=== PATIENT | female | born 1965 | race African-American/Black ===

== ENCOUNTER 2023-04-17 00:48 | Inpatient (IN) | payer OTHER ==
[~2023-04-17] VITALS: Ht 167.6 cm; Wt 70.5 kg
[2023-04-17] MEDS ORDERED: InsuLIN REG 1unit/0.01ml Soln (100units/ml) IV ONE (01:15)
[2023-04-17] MEDS ORDERED: LACTATED RINGER'S 1,000 ML IV ONE (01:15)
[2023-04-17 01:30] VITALS: PULSE 112; RESP 20; O2SAT 96
[2023-04-17 01:33] LABS: Basophils # (auto) 0 10 ^3/uL (0-0.2); Basophils % (auto) 0.3 % (0.0-2.0); Eosinophils # (auto) 0 10 ^3/uL (0-0.8); Hemoglobin 12.8 g/dL (12.2-16.2); Lymphocytes # (auto) 0.8 10 ^3/uL (0.4-5.4); Mean Corpuscular Hemoglobin 30.2 pg (28.0-32.0); Red Blood Cells 4.24 10^6/uL (4.0-5.20)
[2023-04-17 01:34] LABS: Hematocrit 42.2 % (36.0-46.0); Lymphocytes % (auto) 4.8 % (10.0-50.0); Mean Corpuscular Hgb Conc. 30.3 g/dL (32.0-36.0); Mean Corpuscular Volume 99.6 fL (80.0-100.0); Monocytes # (auto) 1.4 10 ^3/uL (0-1.3); Monocytes % (auto) 8.6 % (0.0-12.0); Neutrophils # (auto) 14.2 10 ^3/uL (1.6-8.6); Neutrophils % (auto) 86.3 % (37.0-80.0); Nucleated Red Blood Cells % 0.1 %; Red Cell Distribution Width 15.6 % (11.8-14.3); White Blood Cell 16.5 10^3/uL (4.4-10.8)
[2023-04-17 01:54] LABS: Alanine Aminotransferase 108 U/L (7-40); Albumin 4.9 g/dL (3.2-4.8); Alkaline Phosphatase 200 U/L (46-116); Anion Gap 28.00001 (5-15); Aspartate Aminotransferase 97 U/L (13-40); BUN/Creatinine Ratio 14.6 (10.0-20.0); Blood Urea Nitrogen 20 mg/dL (9-23); Calcium 9.6 mg/dL (8.7-10.4); Chloride 101 mmol/L (98-107); Magnesium 2.2 mg/dL (1.6-2.6); Potassium 5.4 mmol/L (3.5-5.1); Sodium 139 mmol/L (136-145)
[2023-04-17 01:55] LABS: Bilirubin, Total 0.4 mg/dL (0.2-1.0); Total Protein 8.1 g/dL (5.7-8.2)
[2023-04-17 02:08] LABS: Carbon Dioxide < 10.0 mmol/L (20-30)
[2023-04-17 02:09] LABS: Glucose 555 mg/dL (74-106)
[2023-04-17] MEDS ORDERED: LACTATED RINGER'S 2,100 ML IV ONE (02:15)
[2023-04-17] MEDS ORDERED: InsuLIN R (HUMAN) 100 UNITS in SODIUM CHL 0.9% 99 ML IV SCH ×2 (02:15→08:00)
[2023-04-17] MEDS ORDERED: DEXTROSE (50%) 50ML SYRG IV PRN ×3 (02:15→16:15)
[2023-04-17] MEDS ORDERED: MORPHINE SULFATE 4 MG/ML SYR/VIAL IV ONE (03:15)
[2023-04-17] MEDS ORDERED: ACETAMINOPHEN 325 MG TAB PO ONE ×2 (03:15→07:15)
[2023-04-17] MEDS ORDERED: ONDANSETRON HCL 4 MG/2 ML VIAL IV ONE (03:15)
[2023-04-17 03:26] LABS: Urine Bacteria FEW /hpf (None Seen); Urine Blood Negative /uL (Negative); Urine Clarity Clear (Clear); Urine Color Colorless (Yellow); Urine Hyaline Cast FEW /lpf (0 - 2); Urine Protein, UAD 1+ (Negative); Urine Specific Gravity 1.017 (1.001-1.035); Urine Urobilinogen Normal (Negative); Urine WBC 2 /hpf (0 - 5)
[2023-04-17] MEDS ORDERED: ACETAMINOPHEN 325 MG TAB PO PRN ×3 (07:15→09:45)
[2023-04-17 07:40] LABS: Alanine Aminotransferase 89 U/L (7-40); Albumin 4.3 g/dL (3.2-4.8); Alkaline Phosphatase 150 U/L (46-116); Anion Gap 23.00001 (5-15); Aspartate Aminotransferase 73 U/L (13-40); BUN/Creatinine Ratio 11.7 (10.0-20.0); Bilirubin, Total 0.2 mg/dL (0.2-1.0); Blood Urea Nitrogen 14 mg/dL (9-23); Calcium 8.7 mg/dL (8.5-10.1); Chloride 106 mmol/L (98-107); Glucose 254 mg/dL (74-106); Potassium 4.6 mmol/L (3.5-5.1); Sodium 139 mmol/L (136-145); Total Protein 7.4 g/dL (5.7-8.2)
[2023-04-17 08:00] VITALS: PULSE 104; RESP 14; O2SAT 95
[2023-04-17] MEDS ORDERED: SODIUM CHLORIDE 0.9% 1,000 ML IV SCH (08:00)
[2023-04-17] MEDS ORDERED: INSULIN LANTUS (GLARGINE) 1 /0.01ml (100units/ml) SC ONE (08:00)
[2023-04-17 08:07] LABS: Carbon Dioxide < 10.0 mmol/L (20-30)
[2023-04-17] MEDS ORDERED: D5W/SOD CHL 0.45% 1,000 ML IV SCH (08:15)
[2023-04-17] MEDS ORDERED: SODIUM BICARBONATE 8.4 % INJ 50ML VIAL IV ONE (08:15)
[2023-04-17] MEDS: ACCU-CHEK COMFORT CURVE STRIP VI SCH ×7 (08:16→21:04)
[2023-04-17] MEDS ORDERED: NITROGLYCERIN 0.4 MG SL TAB SL PRN ×2 (09:45→16:00)
[2023-04-17] MEDS ORDERED: cefTRIAXone 1GM/50ML D5W 50 ML IV ONE (09:45)
[2023-04-17] MEDS ORDERED: MORPHINE SULFATE INJ 2 MG/ml SYRG IV PRN ×2 (09:45→16:00)
[2023-04-17] MEDS ORDERED: INS7030I SC (09:50)
[2023-04-17] MEDS ORDERED: ROSU1TAB14 PO (09:50)
[2023-04-17] MEDS ORDERED: METF-372 PO (09:50)
[2023-04-17] MEDS ORDERED: MET25T PO (09:50)
[2023-04-17 10:10] LABS: COVID19 ANTIGEN SOFIA FIA NEGATIVE (NEGATIVE)
[2023-04-17] MEDS ORDERED: PANTOPRAZOLE 40 MG/10 ML VIAL INJ IV ONE (10:15)
[2023-04-17 10:44] LABS: Amphetamine Screen, Urine Neg (NEGATIVE)
[2023-04-17 10:45] LABS: Barbiturate Scree,Urine Neg (NEGATIVE); Benzodiazephine Screen, Urine Neg (NEGATIVE); Cannabinoid Screen, Urine Neg (NEGATIVE); Cocaine Screen, Urine Neg (NEGATIVE); Opiate Scree,Urine Neg (NEGATIVE); Phencyclidine Screen, Urine Neg (NEGATIVE)
[2023-04-17] MEDS: METOPROLOL TARTRATE 25 MG TAB PO SCH (10:53)
[2023-04-17] MEDS: ENOXAPARIN SOD 40 MG/0.4 ML SYRINGE SC SCH (10:53)
[2023-04-17] MEDS: D5W/SOD CHL 0.45% 1,000 ML IV SCH ×3 (10:53→16:11)
[2023-04-17 11:05] LABS: Base Excess -5.6 mmol/L (-2.0-2.0)
[2023-04-17 14:13] LABS: Chloride 105 mmol/L (98-107); Potassium 4.4 mmol/L (3.5-5.1); Sodium 138 mmol/L (136-145)
[2023-04-17 14:14] LABS: Anion Gap 10.9 (5-15); Calcium 8.3 mg/dL (8.5-10.1); Carbon Dioxide 22.1 mmol/L (20-30)
[2023-04-17 14:19] LABS: BUN/Creatinine Ratio 10.5 (10.0-20.0); Blood Urea Nitrogen 11 mg/dL (9-23); Glucose 261 mg/dL (74-106)
[2023-04-17] MEDS: InsuLIN REG 1unit/0.01ml Soln (100units/ml) SC SCH ×2 (17:12→21:09)
[2023-04-17 20:08] LABS: Chloride 105 mmol/L (98-107); Potassium 3.6 mmol/L (3.5-5.1); Sodium 138 mmol/L (136-145)
[2023-04-17 20:09] LABS: Anion Gap 9.6 (5-15); Carbon Dioxide 23.4 mmol/L (20-30)
[2023-04-17 20:10] LABS: Calcium 8.3 mg/dL (8.5-10.1)
[2023-04-17 20:14] LABS: Glucose 199 mg/dL (74-106)
[2023-04-17 20:15] LABS: BUN/Creatinine Ratio 8.5 (10.0-20.0); Blood Urea Nitrogen 8 mg/dL (9-23)
[2023-04-17] MEDS ORDERED: ATORVASTATIN 20 MG TAB PO SCH (22:00)
[2023-04-18 02:28] LABS: Chloride 106 mmol/L (98-107); Potassium 3.9 mmol/L (3.5-5.1); Sodium 139 mmol/L (136-145)
[2023-04-18 02:29] LABS: Anion Gap 6.5 (5-15); Carbon Dioxide 26.5 mmol/L (20-30)
[2023-04-18 02:30] LABS: Calcium 8.6 mg/dL (8.7-10.4)
[2023-04-18 02:35] LABS: Blood Urea Nitrogen 7 mg/dL (9-23); Glucose 149 mg/dL (74-106)
[2023-04-18] MEDS: ACCU-CHEK COMFORT CURVE STRIP VI SCH ×2 (06:24→11:27)
[2023-04-18] MEDS: InsuLIN REG 1unit/0.01ml Soln (100units/ml) SC SCH ×2 (07:04→11:29)
[2023-04-18 07:25] VITALS: PULSE 93; RESP 14; O2SAT 97
[2023-04-18 08:06] LABS: Basophils # (auto) 0.1 10 ^3/uL (0-0.2); Basophils % (auto) 0.9 % (0.0-2.0); Eosinophils # (auto) 0.1 10 ^3/uL (0-0.8); Eosinophils % (auto) 2.2 % (0.0-7.0); Hematocrit 33.4 % (36.0-46.0); Lymphocytes # (auto) 1.7 10 ^3/uL (0.4-5.4); Lymphocytes % (auto) 30.2 % (10.0-50.0); Mean Corpuscular Hemoglobin 30.6 pg (28.0-32.0); Mean Corpuscular Hgb Conc. 33.1 g/dL (32.0-36.0); Mean Corpuscular Volume 92.7 fL (80.0-100.0); Monocytes # (auto) 0.6 10 ^3/uL (0-1.3); Monocytes % (auto) 10.6 % (0.0-12.0); Neutrophils # (auto) 3.2 10 ^3/uL (1.6-8.6); Neutrophils % (auto) 56.1 % (37.0-80.0); Nucleated Red Blood Cells % 0.1 %; Red Cell Distribution Width 14.3 % (11.8-14.3); White Blood Cell 5.6 10^3/uL (4.4-10.8)
[2023-04-18] MEDS: D5W/SOD CHL 0.45% 1,000 ML IV SCH (08:34)
[2023-04-18 08:37] LABS: Alanine Aminotransferase 83 U/L (7-40); Alkaline Phosphatase 111 U/L (46-116); Anion Gap 8.4 (5-15); BUN/Creatinine Ratio 7.2 (10.0-20.0); Blood Urea Nitrogen 6 mg/dL (9-23); Calcium 8.2 mg/dL (8.5-10.1); Carbon Dioxide 23.6 mmol/L (20-30); Chloride 105 mmol/L (98-107); Glucose 288 mg/dL (74-106); Potassium 3.9 mmol/L (3.5-5.1); Sodium 137 mmol/L (136-145)
[2023-04-18 08:38] LABS: Albumin 3.5 g/dL (3.2-4.8); Aspartate Aminotransferase 141 U/L (13-40); Bilirubin, Total 0.4 mg/dL (0.2-1.0)
[2023-04-18] MEDS ORDERED: cefTRIAXone 1GM/50ML D5W 50 ML IV SCH (09:00)
[2023-04-18] MEDS: METOPROLOL TARTRATE 25 MG TAB PO SCH (09:52)
[2023-04-18] MEDS: ENOXAPARIN SOD 40 MG/0.4 ML SYRINGE SC SCH (09:52)
[2023-04-18] MEDS ORDERED: PANTOPRAZOLE 40 MG/10 ML VIAL INJ IV SCH (10:00)
[2023-04-18] MEDS ORDERED: INSULIN LANTUS (GLARGINE) 1 /0.01ml (100units/ml) SC SCH (10:00)
[2023-04-18] MEDS ORDERED: POTASSIUM PHOSPHATE 44 MEQ in D5W 5% 250 ML IV ONE (12:15)
[2023-04-18 13:14] VITALS: BP 143/87; PULSE 82; RESP 17; TEMP 98.3; O2SAT 100
[2023-04-18] MEDS ORDERED: NEUTRA-PHOS TABLET PO ONE (15:30)
[2023-04-18 15:38] VITALS: PULSE 85; RESP 17; O2SAT 99
[2023-04-18 15:42] VITALS: BP 109/68; PULSE 85; RESP 17; TEMP 97.8
[2023-04-18 15:52] VITALS: BP 109/68; PULSE 85; RESP 17; TEMP 98.7; O2SAT 99
== END 2023-04-18 16:50 | disposition home or self-care (01) | DRG 637 ==
LOC: ER 00:53 → TELE 09:44 → TELE-CENTR 04-18 13:00
PROVIDERS: ADMIT Nurse Practitioner Family; ATTEND Internal Medicine
PROC: 05HA33Z Insertion of Infusion Device into Left Brachial Vein, Percutaneous Approach (ICD-10-PCS; principal; 2023-04-17)
PROC: B54NZZA Ultrasonography of Left Upper Extremity Veins, Guidance (ICD-10-PCS; 2023-04-17)
DX: E11.10 Type 2 diabetes mellitus with ketoacidosis without coma (principal); N17.0 Acute kidney failure with tubular necrosis; D72.829 Elevated white blood cell count, unspecified; E86.0 Dehydration; E87.5 Hyperkalemia; I10 Essential (primary) hypertension; R74.01 Elevation of levels of liver transaminase levels; R79.89 Other specified abnormal findings of blood chemistry; E83.39 Other disorders of phosphorus metabolism; Z91.199 Patient's noncompliance with other medical treatment and regimen due to unspecified reason; Z20.822 Contact with and (suspected) exposure to COVID-19
CPT/HCPCS: 36415; 36600; 71045; 76705; 80048; 80053; 80307; 81001; 82010; 82306; 82805; 82962; 83036; 83605; 83735; 84100; 85025; 87040; 87426; 96361; 96365; 96367; 96372; 96375; 99291; C9113; G0378; J0696; J1815; J2405; J7060

== ENCOUNTER 2025-08-05 21:02 | Emergency (ER) | payer OTHER, MEDICAID ==
[~2025-08-05] VITALS: Ht 167.6 cm; Wt 71.5 kg
[~2025-08-05 21:02] MED LIST: INS7030I SC; MET25T PO; METF-372 PO; ROSU20TA56 PO
--- NOTE | 2025-08-05 21:58 | ED.PDOC ---
GI ASSESSMENT HPI Comments 60 year old female with PMHx HTN, DM presents to the ED with a chief complaint of abdominal pain onset 1 week. Patient states she has been experiencing abdominal pain, nausea shortly after eating for the past week as well as hyperglycemia. Today BG was 404 after her meal, took her insulin and BG dropped after 2 hours. Patient went to [facility] today, was advised to go to ED due to abdominal pain. She is also experiencing constipation and diarrhea. Daughter states patient was diagnosed with Gastroparesis, did not take medication that was prescribed. Denies fever, chills, vomiting, hematemesis, dizziness, chest pain, shortness of breath, melena, blood in stool. No other symptoms or modifying factors present at this time. Chief Complaint: Hyperglycemia Time Seen by MD: 21:50 Reviewed Notes: Medications, Allergies Allergies: Uncoded Allergies: UNKNOWN PAIN MEDICATION (Allergy, Mild, 04/17/23) Home Meds Reported Medications Rosuvastatin Calcium (Rosuvastatin Calcium) 20 Mg Tab, 1 TAB PO 04/17/23 Metoprolol Tartrate (Lopressor) 25 Mg Tb, 1 TAB PO DAILY 04/17/23 Insulin Isophane & Reg (Human) (Humulin 70/30 (70-30) 100 Unit/ml) 1 Units/0.01 Ml Inj, 44 UNIT SC QAM 04/17/23 Metformin Hydrochloride (Metformin Hcl) 1,000 Mg Tab, 1 TAB PO BID 04/17/23 Information Source: Patient, Relative Mode of Arrival: Ambulatory Timing: Weeks Duration: Since onset Prehospital treatment: None Quality: Sharp Vomitus: None Severity: Moderate Recent: None Recent Hx of: None Pain Location: Diffuse (upper) Modifying Factors: Nothing Associated sign and symptoms: Nausea, Diarrhea, Constipation, Abdominal Pain Past Medical History PAST MEDICAL HISTORY: DM, HTN Surgical History: Denies all surgeries [employer]OR [employer] History: Denies all [employer]OR [employer] Hx Family History Family History: Reviewed,noncontributory to illness Social History Smoker: Non-Smoker Alcohol: Denies ETOH Use Drugs: Denies Drug Use Lives In: Home Constitutional: denies: chills, diaphoresis, fatigue, fever, malaise, sweats, weakness, others EENTM: denies: blurred vision, double vision, ear bleeding, ear discharge, ear drainage, ear pain, ear ringing, eye pain, eye redness, hearing loss, mouth pain, mouth swelling, nasal discharge, nose bleeding, nose congestion, nose pain, photophobia, tearing, throat pain, throat swelling, voice changes, others Respiratory: denies: cough, hemoptysis, orthopnea, SOB at rest, shortness of breath, SOB with excertion, stridor, wheezing, others Cardiovascular: denies: chest pain, dizzy spells, diaphoresis, Dyspnea on exertion, edema, irregular heart beat, left arm pain, lightheadedness, palpitations, PND, syncope, others Gastrointestinal: reports: abdominal pain, constipated, diarrhea, nausea; denies: abdomen distended, blood streaked bowels, dysphagia, difficulty swallowing, hematemesis, melena, poor appetite, poor fluid intake, rectal bleeding, rectal pain, vomiting, others Genitourinary: denies: abnormal vagina bleeding, burning, dyspareunia, dysuria, flank pain, frequency, hematuria, incontinence, pain, , vagina discharge, urgency, others Neurological: denies: dizziness, fainting, headache, left sided numbness, left sided weakness, numbness, paresthesia, pre-existing deficit, right sided numbness, right sided weakness, seizure, speech problems, tingling, tremors, weakness, others Musculoskeletal: denies: back pain, gout, joint pain, joint swelling, muscle pain, muscle stiffness, neck pain, others Integumetry: denies: bruises, change in color, change in hair/nails, dryness, laceration, lesions, lumps, rash, wounds, others Allergic/Immunocompromised: denies: Difficulty Healing, Frequent Infections, Hives, Itching, others Hematologic/Lymphatic: denies: anemia, blood clots, easy bleeding, easy bruising, swollen glands, others Endocrine: reports: others (hyperglycemia); denies: excessive hunger, excessive sweating, excessive thirst, excessive urination, flushing, intolerance to cold, intolerance to heat, unexplained weight gain, unexplained weight loss Psychiatric: denies: anxiety, bipolar disorder, depression, hopeless, panic disorder, schizophrenia, sleepless, suicidal, others All Other Systems: Reviewed and Negative Physical Exam General Appearance: Normal HEENT: Normal ENT Inspection, Pharynx Normal, TMs Normal Neck: Full Range of Motion, Non-Tender, Normal, Normal Inspection Respiratory: Chest Non-Tender, Lungs Clear, No Accessory Muscle Use, No Respiratory Distress, Normal Breath Sounds Cardiovascular: No Edema, No JVD, No Murmur, No Gallop, Normal Peripheral Pulses, Regular Rate/Rhythm Breast Exam: Deferred Gastrointestinal: Diffuse (Upper abdominal tenderness), No Organomegaly, Normal Bowel Sounds Genitalia: Deferred Pelvic: Deferred Rectal: Deferred Extremities: No calf tenderness, Normal capillary refill, Normal inspection, Normal range of motion, Non-tender, No pedal edema Musculoskeletal : Apperance: Normal Neurologic: Alert, 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 Was a procedure done?: No GI differential Dx Differential Diagnosis: Gastritis/PUD, Gastroenteritis, Pancreatitis, Porphyria, Dehydration, Diabetes/ DKA, Food Poisoning, Bacterial X-Ray, Labs, Meds, VS Vital Signs Date Time Temp Pulse Resp B/P (MAP) Pulse Ox O2 Delivery O2 Flow Rate FiO2 08/05/25 23:29 98.9 101 16 148/92 (110) 96 98.9 08/05/25 23:29 101 16 96 Room Air* 0 21 08/05/25 21:16 98.5 102 18 167/104 96 98.5 Lab Test 08/05/25 23:40 08/05/25 22:17 Range/Units Urine Color Light-yellow Yellow Urine Clarity Clear Clear Urine pH 5.0 5.0-9.0 Urine Specific Leiter 1.015 1.001-1.035 Urine Protein Negative Negative Urine Ketones Trace Negative Urine Blood Negative Negative /uL Urine Nitrite Negative Negative Urine Bilirubin Negative Negative Urine Urobilinogen Normal Negative mg/dL Urine Leukocyte Esterase 2+ Negative /uL Urine RBC 2 0 - 4 /hpf Urine Microscopic WBC 14 H 0-5 /HPF Urine Squamous Epithelial Cells Few <5 /hpf Urine Bacteria None seen None Seen /hpf Urine Glucose Normal Normal mg/dL White Blood Count 9.7 4.4-10.8 10^3/uL Red Blood Count 4.35 4.0-5.20 10^6/uL Hemoglobin 12.1 L 12.2-16.2 g/dL Hematocrit 37.4 36.0-46.0 % Mean Corpuscular Volume 86.1 80.0-100.0 fL Mean Corpuscular Hemoglobin 27.9 L 28.0-32.0 pg Mean Corpuscular Hemoglobin Concent 32.4 32.0-36.0 g/dL Red Cell Distribution Width 16.2 H 11.8-14.3 % Platelet Count 465 H 140-450 10^3/uL Mean Platelet Volume 6.8 L 6.9-10.8 fL Neutrophils (%) (Auto) 51.1 37.0-80.0 % Lymphocytes (%) (Auto) 36.9 10.0-50.0 % Monocytes (%) (Auto) 9.8 0.0-12.0 % Eosinophils (%) (Auto) 1.3 0.0-7.0 % Basophils (%) (Auto) 0.9 0.0-2.0 % Neutrophils # (Auto) 5.0 1.6-8.6 10 ^3/uL Lymphocytes # (Auto) 3.6 0.4-5.4 10 ^3/uL Monocytes # (Auto) 0.9 0-1.3 10 ^3/uL Eosinophils # (Auto) 0.1 0-0.8 10 ^3/uL Basophils # (Auto) 0.1 0-0.2 10 ^3/uL Nucleated Red Blood Cells 0.1 % Sodium Level 135 L 136-145 mmol/L Potassium Level 3.8 3.5-5.1 mmol/L Chloride Level 99 98-107 mmol/L Carbon Dioxide Level 27 20-31 mmol/L Anion Gap 9 5-15 Blood Urea Nitrogen 8 L 9-23 mg/dL Creatinine 0.80 0.550-1.02 mg/dL Glomerular Filtration Rate Calc 84 >90 mL/min BUN/Creatinine Ratio 10.0 10.0-20.0 Serum Glucose 196 H 74-106 mg/dL Calcium Level 10.0 8.7-10.4 mg/dL Total Bilirubin 0.4 0.2-1.0 mg/dL Aspartate Amino Transferase (AST) 28 13-40 U/L Alanine Aminotransferase (ALT) 25 7-40 U/L Alkaline Phosphatase 125 H 46-116 U/L Total Protein 8.5 H 5.7-8.2 g/dL Albumin 4.8 3.2-4.8 g/dL Lipase 24 12-53 U/L X-Ray, Labs, Meds, VS Comment Imaging: X-rays and CT scans were reviewed and interpreted by this provider, imaging shows no fractures and no pathological disease. Pending radiology review. Laboratory: Labs reviewed and interpreted by this provider. No significant abnormalities noted. Patient has prior medical visits reviewed. Med reconciliation performed Vital signs reviewed Time of 1ST Reevaluation: 22:20 Reevaluation 1ST: Unchanged Patient Education/Counseling: Diagnosis, Treatment, Need For Follow Up (Follow up with the PCP in next 2-3 days. Return to emergency department if symptoms worsen.) Family Education/Counseling: Diagnosis, Treatment SEPSIS Sepsis Screen Date sepsis recognized/suspect: Aug 05, 2025 Time Sepsis recognized/suspect: 2117 Recent Procedure: No On Antibiotic Therapy: No Respiratory Rate >20: No Heart Rate >90: Yes Temp<36 C (96.8 F) or >38.3 C: No SBP <90 or MAP <65 mmHG: No New Acute Mental Status Change: No Is the patient on CPAP, BIPAP,: No Physician Orders Ct Ab Pel Wo Con-No Oral Or Iv (08/05/25 22:02) Vital Signs Date Time Temp Pulse Resp B/P (MAP) Pulse Ox O2 Delivery O2 Flow Rate FiO2 08/05/25 23:29 98.9 101 16 148/92 (110) 96 98.9 08/05/25 23:29 101 16 96 Room Air* 0 21 08/05/25 21:16 98.5 102 18 167/104 96 98.5 Laboratory Tests Test 08/05/25 22:17 White Blood Count 9.7 10^3/uL (4.4-10.8) Departure 1 Departure Time of Disposition: 00:21 Impression: Primary Impression: Nausea & vomiting Qualified Codes: R11.14 - Bilious vomiting Additional Impressions: Gastroparesis due to DM Pneumonia Qualified Codes: J18.9 - Pneumonia, unspecified organism Disposition: 01 HOME / SELF CARE / HOMELESS Condition: Stable e-Prescriptions Dicyclomine Hcl (BENTYL CAPSULE) 10 Mg Cp 1 CAP PO TID PRN, #60 CAP 11 Refills Prov: CHIKA MANSFIELD COACH BUILDER 08/06/25 Ondansetron HCl (Ondansetron) 4 Mg Tab 4 MG PO TID PRN, #20 TAB Prov: CHIKA MANSFIELD COACH BUILDER 12/24/25 Amoxicillin & Pot Clavulanate (AUGMENTIN TABLET) 875 Mg Tb 875 MG PO BID for 7 Days, #14 TAB Prov: CHIKA MANSFIELD 08/06/25 Discharged With: Self Critical Care Note Critical Care Time?: No Stability Stability form required: No Heart Score Heart Score: Heart Score Response (Comments) Value History N/A 0 EKG N/A 0 Age N/A 0 Risk Factors N/A 0 Troponin N/A 0 Total 0 I personally scribed for CHIKA MANSFIELD ([email or web address]) on 08/05/25 at 21:58. Electronically submitted by Kala Ovalle ([email or web address]). CHIKA MANSFIELD Aug 05, 2025 21:58
[2025-08-05 22:31] LABS: Hematocrit 37.4 % (36.0-46.0); Hemoglobin 12.1 g/dL (12.2-16.2); Mean Corpuscular Hemoglobin 27.9 pg (28.0-32.0); Mean Corpuscular Volume 86.1 fL (80.0-100.0); Nucleated Red Blood Cells % 0.1 %
--- NOTE | 2025-08-05 22:42 | DVH ---
EXAM: CT CT AB PEL WO CON-NO ORAL OR IV History: ABD PAIN Comparison Study: None TECHNIQUE: Multidetector spiral CT of the abdomen was performed from lung bases to pubic symphysis. Imaging was performed without IV contrast. Axial, coronal and sagittal multiplanar reformats were obtained from the axial data set by the technologist. Radiation Dose : 1. Abdomen/Pelvis: CTDIvol 5.68 mGy, DLP 315.48 mGy*cm. FINDINGS: Evaluation of solid organs is limited due to lack of intravenous contrast use. Lung Bases: Ground-glass densities in the right lower lobe may reflect mild pneumonia. Liver: The liver is normal in size. No focal lesions. Gallbladder and Biliary Tree: Unremarkable Spleen: Unremarkable Pancreas: The pancreas is grossly normal in appearance. Adrenal Glands: Unremarkable Kidneys: Kidneys are grossly normal without calculi or hydronephrosis. Bladder: Grossly unremarkable for degree of distention. Bowel: The stomach is grossly normal in appearance. Small bowel and colon are normal in caliber and distribution. The appendix is not visualized; however, no secondary findings of acute appendicitis identified. Ascites: Absent Lymphadenopathy: No mesenteric, retroperitoneal or periportal lymphadenopathy. Abdominal Wall and Mesentery: Unremarkable. Vasculature: The visualized abdominal aorta is normal in size and caliber. Evaluation of abdominal and pelvic vessels is limited due to lack of intravenous contrast. Pelvic Organs: IUD is in good position. Musculoskeletal: No aggressive focal bony lesions, acute fractures or dislocation. IMPRESSION: 1. Ground-glass densities in the right lower lobe may reflect mild pneumonia. 2. No acute process in the abdomen or pelvis. Radiation optimization: All CT scans at this facility use at least one of these dose optimization techniques: automated exposure control mA and/or kV adjustment per patient size (includes targeted exams where dose is matched to clinical indication) or iterative reconstruction.
[2025-08-05 22:53] LABS: Alanine Aminotransferase 25 U/L (7-40); Anion Gap 9 (5-15); Calcium 10.0 mg/dL (8.7-10.4); Carbon Dioxide 27 mmol/L (20-31); Chloride 99 mmol/L (98-107); Lipase 24 U/L (12-53); Potassium 3.8 mmol/L (3.5-5.1)
[2025-08-05 22:54] LABS: Albumin 4.8 g/dL (3.2-4.8); BUN/Creatinine Ratio 10.0 (10.0-20.0); Bilirubin, Total 0.4 mg/dL (0.2-1.0)
[2025-08-05 23:00] LABS: Alkaline Phosphatase 125 U/L (46-116); Blood Urea Nitrogen 8 mg/dL (9-23); Glucose 196 mg/dL (74-106); Sodium 135 mmol/L (136-145); Total Protein 8.5 g/dL (5.7-8.2)
[2025-08-05 23:29] VITALS: BP 148/92; PULSE 101; RESP 16; TEMP 98.9; O2SAT 96
[2025-08-05 23:58] LABS: Urine Protein, UAD Negative (Negative)
[2025-08-06] MEDS ORDERED: ONDA-155 PO (00:23)
[2025-08-06] MEDS ORDERED: DICY10CA PO (00:23)
[2025-08-06] MEDS ORDERED: AUG875T PO (00:23)
== END 2025-08-06 00:42 | disposition home or self-care (01) ==
LOC: ER 21:02
DX: E11.43 Type 2 diabetes mellitus with diabetic autonomic (poly)neuropathy (principal); K31.84 Gastroparesis; E11.65 Type 2 diabetes mellitus with hyperglycemia; I10 Essential (primary) hypertension; J18.9 Pneumonia, unspecified organism; J98.4 Other disorders of lung; K59.00 Constipation, unspecified; Z79.84 Long term (current) use of oral hypoglycemic drugs; Z79.899 Other long term (current) drug therapy; Z91.148 Patient's other noncompliance with medication regimen for other reason; Z88.6 Allergy status to analgesic agent
CPT/HCPCS: 36415; 74176; 80053; 81001; 82947; 83690; 85025